=== PATIENT | female | born 1985 | race American Indian/Alaskan Native ===

== ENCOUNTER 2021-02-15 15:45 | Emergency (ER) | payer BC ==
[2021-02-15] MEDS ORDERED: SODIUM CHLORIDE IRRI 500 ML 500 ML IR ONE (20:20)
--- NOTE | 2021-02-15 20:29 | Emergency Department Report ---
- General Chief complaint: Skin/Abscess/Foreign Body Stated complaint: BOIL UNDER ARMPIT Time Seen by Provider: 02/15/21 20:19 Source: patient Mode of arrival: Ambulatory Limitations: No Limitations - History of Present Illness MD complaint: abscess/boil -: Gradual, days(s) (3) Tetanus Up to Date: yes Location: LUE (Left axillary region) Severity: moderate Quality: aching, dull Consistency: constant Improves with: none Worsens with: none Associated symptoms: denies other symptoms Treatments Prior to Arrival: none - Related Data Previous Rx's Medication Instructions Recorded Last Taken Type Acetaminophen/Codeine [Tylenol #3] 1 tab PO Q6H PRN #15 tab 02/15/21 Unknown Rx Chlorhexidine Gluconate [Hibiclens] 10 ml TP BID #240 liquid 02/15/21 Unknown Rx Sulfamethoxazole/Trimethoprim 1 each PO BID #20 tablet 02/15/21 Unknown Rx [Bactrim DS TAB] Allergies Allergy/AdvReac Type Severity Reaction Status Date / Time No Known Allergies Allergy Verified 02/15/21 20:20 Abscess Boil HPI - HPI Chief Complaint: Skin/Abscess/Foreign Body Stated Complaint: BOIL UNDER ARMPIT Time Seen by Provider: 02/15/21 20:19 Home Medications: Previous Rx's Medication Instructions Recorded Last Taken Type Acetaminophen/Codeine [Tylenol #3] 1 tab PO Q6H PRN #15 tab 02/15/21 Unknown Rx Chlorhexidine Gluconate [Hibiclens] 10 ml TP BID #240 liquid 02/15/21 Unknown Rx Sulfamethoxazole/Trimethoprim 1 each PO BID #20 tablet 02/15/21 Unknown Rx [Bactrim DS TAB] Allergies/Adverse Reactions: Allergies Allergy/AdvReac Type Severity Reaction Status Date / Time No Known Allergies Allergy Verified 02/15/21 20:20 ED Review of Systems ROS: Stated complaint: BOIL UNDER ARMPIT Other details as noted in HPI Comment: All other systems reviewed and negative ED Past Medical Hx - Past Medical History Previous Medical History?: No Additional medical history: denies - Surgical History Past Surgical History?: No Additional Surgical History: denies - Social History Smoking Status: Current Some Day Smoker Substance Use Type: Alcohol - Medications Home Medications: Home Medications Medication Instructions Recorded Confirmed Last Taken Type Acetaminophen/Codeine [Tylenol #3] 1 tab PO Q6H PRN #15 tab 02/15/21 Unknown Rx Chlorhexidine Gluconate [Hibiclens] 10 ml TP BID #240 liquid 02/15/21 Unknown Rx Sulfamethoxazole/Trimethoprim 1 each PO BID #20 tablet 02/15/21 Unknown Rx [Bactrim DS TAB] ED Physical Exam - General Limitations: No Limitations General appearance: alert, in no apparent distress - Head Head exam: Present: atraumatic, normocephalic - Eye Eye exam: Present: normal appearance - ENT ENT exam: Present: mucous membranes moist - Neck Neck exam: Present: normal inspection - Respiratory Respiratory exam: Present: normal lung sounds bilaterally. Absent: respiratory distress - Cardiovascular Cardiovascular Exam: Present: regular rate, normal rhythm. Absent: systolic murmur, diastolic murmur, rubs, gallop - GI/Abdominal GI/Abdominal exam: Present: soft, normal bowel sounds - Extremities Exam Extremities exam: Present: normal inspection, tenderness (Left axilla with erythema abscess noted. No lymphangitis noted. No lymphadenopathy. Tenderness with palpation the area is fluctuant with some surrounding induration.), normal capillary refill - Back Exam Back exam: Present: normal inspection. Absent: CVA tenderness (R), CVA tenderness (L) - Neurological Exam Neurological exam: Present: alert, oriented X3, CN II-XII intact, normal gait - Psychiatric Psychiatric exam: Present: normal affect, normal mood. Absent: anxious, flat affect, manic - Skin Skin exam: Present: warm, dry, intact, normal color. Absent: rash, cyanosis, diaphoretic, erythema - Procedure Description Procedures done: PRE-OP DIAGNOSIS: *Abscess. POST-OP DIAGNOSIS: Same. PROCEDURE: incision and drainage of abscess. Performing Physician/advanced practice provider: Orlin Jones_. . PROCEDURE: A timeout protocol was performed prior to initiating the procedure. The area was prepared and draped in the usual, sterile manner. The site was anesthetized with 2% lidocaine without epinephrine. A linear incision was along the local skin lines was made and the purulent material expressed. The abcess was explored thoroughly and sequestered pockets were opened. Wound was irrigated with normal saline and bleeding was minimal. Packing: None. . Followup: The patient tolerated the procedure well without complications. Standard post-procedure care is explained and return precautions are given. Critical care attestation.: If time is entered above; I have spent that time in minutes in the direct care of this critically ill patient, excluding procedure time. ED Disposition Clinical Impression: Abscess of axilla, left Disposition: DC-01 TO HOME OR SELFCARE Is pt being admited?: No Does the pt Need Aspirin: No Condition: Stable Instructions: Incision and Drainage, Skin Abscess, Incision and Drainage, Care After Additional Instructions: Be sure to follow-up with your primary care provider or the listed provider for a reevaluation of post incision and drainage wound in 2 to 3 days Prescriptions: Sulfamethoxazole/Trimethoprim [Bactrim DS TAB] 1 each PO BID #20 tablet Chlorhexidine Gluconate [Hibiclens] 10 ml TP BID #240 liquid Acetaminophen/Codeine [Tylenol #3] 1 tab PO Q6H PRN #15 tab PRN Reason: Pain
[2021-02-15 21:54] VITALS: BP 110/72
== END 2021-02-15 21:35 | disposition home or self-care (01) ==
LOC: ED 15:45
DX: L02.412 Cutaneous abscess of left axilla (principal); F17.200 Nicotine dependence, unspecified, uncomplicated; Z79.899 Other long term (current) drug therapy
CPT/HCPCS: 99282